=== PATIENT | female | born 1965 | race Caucasian/White ===

== ENCOUNTER 2017-09-03 13:27 | Emergency (ER) | payer BC, OTHER ==
[2017-09-03 13:37] VITALS: BP 146/75; PULSE 83; TEMP 97.6; BMI 28.3
[2017-09-03] MEDS ORDERED: DIPHTH,PERTUSS(ACELL),TET 0.5 ML DISP.SYRIN IM ONE (14:32)
[2017-09-03] MEDS ORDERED: ACETAMINOPHEN 500 MG TABLET (FP) PO ONE (14:39)
[2017-09-03] MEDS ORDERED: ACETAMINOPHEN 325 MG TABLET (FP) ONE (14:41)
--- NOTE | 2017-09-03 14:45 | PDOC ---
History of Present Illness - General Chief Complaint: Injury Stated Complaint: HEAD INJURY Time Seen by Provider: 09/03/17 14:01 History Source: Patient Exam Limitations: No Limitations - History of Present Illness Initial Comments: 09/03/17 14:40 51-year-old female present ED with complaints of left forehead injury. Patient was standing up on a windowsill with socks when she had slipped causing her to fall sideways. Patient sustained a laceration to her left forearm and now complaining of left breast and right knee pain. Patient states unsure of her last tetanus and denies LOC. Patient states is not any anticoagulation therapy including aspirin. Patient currently denies headache, dizziness, visual changes , neck pain or nausea. Occurred: reports: just prior to arrival Severity: reports: mild Pain Location: reports: face Method of Injury: Yes: fall Modifying Factors: improves with: None Loss of Consciousness: no loss of consciousness Associated Symptoms (Fall): other Past History - Past Medical History Allergies/Adverse Reactions: Allergies Allergy/AdvReac Type Severity Reaction Status Date / Time No Known Allergies Allergy Verified 09/03/17 13:37 Home Medications: Ambulatory Orders NK [No Known Home Medication] 09/03/17 Asthma: Yes Cancer: Yes (LYMPHOMA) COPD: No - Suicide/Smoking/Psychosocial Hx Smoking Status: No Smoking History: Never smoked Have you smoked in the past 12 months: No Number of Cigarettes Smoked Daily: 0 Hx Alcohol Use: No Drug/Substance Use Hx: No Patient Lives Alone: No Lives with/in: family Review of Systems - Review of Systems Able to Perform ROS?: Yes Constitutional: No: Symptoms Reported HEENTM: No: Symptoms Reported Respiratory: No: Symptoms reported Cardiac (ROS): Yes: Chest Pain (left breast) Integumentary: Yes: Other (laceration to left scalp) Neurological: No: Headache, Dizziness *Physical Exam - Vital Signs Last Vital Signs Temp Pulse Resp BP Pulse Ox 97.6 F 83 18 146/75 100 09/03/17 13:34 09/03/17 13:34 09/03/17 13:34 09/03/17 13:34 09/03/17 13:34 - Physical Exam General Appearance: Yes: Nourished, Appropriately Dressed. No: Apparent Distress HEENT: positive: EOMI, DAVID, TMs Normal, Pharynx Normal. negative: Pale Conjunctivae Neck: positive: Supple Respiratory/Chest: positive: Chest Tender (left breast with ecchymosis to 10:00 to 12:00. Nipple intact. No palpable hematoma), Lungs Clear, Normal Breath Sounds. negative: Respiratory Distress, Accessory Muscle Use Cardiovascular: positive: Regular Rhythm, Regular Rate. negative: Murmur Gastrointestinal/Abdominal: positive: Soft. negative: Tenderness Musculoskeletal: negative: CVA Tenderness, Vertebral Tenderness Integumentary: positive: Other (macerated linear laceration to left temporal scalp region measuring approx 2 cm) Neurologic: positive: Motor Strength 5/5 (ambulatory) Procedures - Laceration/Wound Repair Left Head Wound Explored: clean Wound's Depth, Shape: linear Wound Repaired With: [place] (4) Sterile Dressing Applied: Yes Medical Decision Making - Medical Decision Making 09/03/17 14:51 Patient injury to left temporal region. Patient on exam with laceration to left temporal region. Patient had 4 nela placed without difficulty. Will discharge patient home after receiving T dap and Tylenol. Patient to return in 10 days. *DC/Admit/Observation/Transfer Diagnosis at time of Disposition: Laceration of scalp without foreign body Qualifiers: Encounter type: initial encounter Qualified Code(s): S01.01XA - Laceration without foreign body of scalp, initial encounter - Discharge Dispostion Disposition: HOME Condition at time of disposition: Improved - Referrals Referrals: Marisabel Stovall MD [Primary Care Provider] - - Patient Instructions Printed Discharge Instructions: DI for Closed Head Injury Additional Instructions: Take Tylenol Motrin for discomfort and please return here in 10 days for staple removal. If you develop any severe headache, nausea, dizziness, or weakness. Return to the ED sooner - Post Discharge Activity Forms/Work/School Notes: Back to Work
== END 2017-09-03 14:58 | disposition home or self-care (01) ==
LOC: JERFT 13:27
PROC: 0HQ0XZZ Repair Scalp Skin, External Approach (ICD-10-PCS; principal; 2017-09-03)
PROC: 3E0234Z Introduction of Serum, Toxoid and Vaccine into Muscle, Percutaneous Approach (ICD-10-PCS; 2017-09-03)
DX: S01.01XA Laceration without foreign body of scalp, initial encounter (principal); W18.39XA Other fall on same level, initial encounter; Y93.89 Activity, other specified; Y92.9 Unspecified place or not applicable
CPT/HCPCS: 90715; 99281-25

== ENCOUNTER 2018-03-31 21:39 | Emergency (ER) | payer BC ==
--- NOTE | 2018-03-31 21:40 | PDOC ---
History of Present Illness - General History Source: Patient Exam Limitations: No Limitations - History of Present Illness Initial Comments: 03/31/18 22:06 A portion of this note was documented by scribe services under my direction. I have reviewed the details of the note, within reason, and agree with the documentation. The case summary and management plan written by me. Assessment and plan: This is a 52-year-old female who comes in complaining of photophobia, tearing and pain bilateral times this evening. Patient is having difficulty opening her eyes secondary to the discomfort. On florescene exam there is diffuse punctate uptake of the florescene of the cornea. Patient started on Tobrex ophthalmic solution and told to follow-up with her candy puller as soon as possible Monday morning. <Nat Lou I - Last Filed: 03/31/18 22:06> - General History Source: Patient Exam Limitations: No Limitations - History of Present Illness Initial Comments: 03/31/18 22:08 The patient is a 52 year old female with a significant PMH of asthma and lymphoma who presents to the emergency department with bilateral eye pain and redness since earlier today. The patient reports that she was outside earlier today having a garage sale in her yard. She states that she took toprol at 12pm today and mistook it for another medication and soon after she began to feel discomfort and redness in both of her eyes. The patient states that it is hard for her to keep her eyes open secondary to pain. She reports some light sensitivity as well. The patient reports that she has experienced an episode similar to this about 3 years ago but it was not as intense. The patient reports that she does had seasonal allergies. She denies any instances of anything getting into her eye. The patient reports a slight headache at time of exam. She denies any other symptoms. She denies fever, chills, nausea, vomit, diarrhea, constipation, or urinary symptoms. She denies chest pain, shortness of breath, and dizziness. The patient denies any other complaints. PAST MEDICAL HISTORY: asthma, Lymphoma PAST SURGICAL HISTORY: no significant history FAMILY HISTORY: no pertinent history SOCIAL HISTORY: Pt lives with family and is employed. MEDICATIONS: reviewed ALLERGIES: As per nursing notes General: No fevers or chills, no weakness, no weight loss HEENT: (+)left are right eye pain and redness. No sore throat,. No ear pain CardioVascular: No chest pain or shortness of breath Respiratory:No cough, or wheezing. Gastrointestinal: no nausea, vomiting, diarrhea or constipation, No rectal bleeding Genitourinary: No dysuria, hematuria, or frequency Musculoskeletal: No joint or muscle pain or swelling Neurologic: No headache, vertigo, dizziness or loss of consciousness Psychiatric: nor depression Skin: No rashes or easy bruising Endocrine: no increased thirst or abnormal weight change Allergic: no skin or latex allergy All other systems reviewed and normal GENERAL: The patient is awake, alert, and fully oriented, in no acute distress. HEAD: Normal with no signs of trauma. EYES:(+)bilateral injection of conjunctiva with profuse tearing of eyes bilaterally. No purulant discharge. Fluorescence staining diffuse punctate of fluorescence of eyes bilaterally. Pupils equal, round and reactive to light, extraocular movements intact. EXTREMITIES: Normal range of motion, no edema. NEUROLOGICAL: Normal speech, normal gait. PSYCH: Normal mood, normal affect. SKIN: Warm, Dry, normal turgor, no rashes or lesions noted. <Patricia Flowers - Last Filed: 03/31/18 22:12> - General Chief Complaint: Eye Problem Stated Complaint: BILATERAL EYE PAIN, REDNESS, TEARING Time Seen by Provider: 03/31/18 21:40 Past History - Past Medical History Asthma: Yes Cancer: Yes (LYMPHOMA) COPD: No - Suicide/Smoking/Psychosocial Hx Smoking Status: No Smoking History: Never smoked Have you smoked in the past 12 months: No Number of Cigarettes Smoked Daily: 0 Hx Alcohol Use: No Drug/Substance Use Hx: No <Nat Lou I - Last Filed: 03/31/18 22:06> <Patricia Flowers - Last Filed: 03/31/18 22:12> - Past Medical History Allergies/Adverse Reactions: Allergies Allergy/AdvReac Type Severity Reaction Status Date / Time No Known Allergies Allergy Verified 03/31/18 21:41 Home Medications: Ambulatory Orders NK [No Known Home Medication] 09/03/17 *Physical Exam - Vital Signs Last Vital Signs Temp Pulse Resp BP Pulse Ox 99.6 F 85 18 127/69 100 03/31/18 21:40 03/31/18 21:40 03/31/18 21:40 03/31/18 21:40 03/31/18 21:40 <Patricia Flowers - Last Filed: 03/31/18 22:12> ED Treatment Course - Medications Given in the ED: ED Medications Discontinued Medications Generic Name Dose Route Start Last Admin Trade Name Yaneth PRN Reason Stop Dose Admin Tobramycin Sulfate 1 drop 03/31/18 22:03 03/31/18 22:04 Tobrex Ophthalmic Solution - OU 03/31/18 22:04 1 drop ONCE ONE Administration <Patricia Flowers - Last Filed: 03/31/18 22:12> *DC/Admit/Observation/Transfer <Nat Lou I - Last Filed: 03/31/18 22:06> - Attestations Scribe Attestion: 03/31/18 22:09 Documentation prepared by Patricia Flowers, acting as medical underwriter for Nat Lou MD. <Patricia Flowers - Last Filed: 03/31/18 22:12> Diagnosis at time of Disposition: Keratitis - Discharge Dispostion Disposition: HOME Condition at time of disposition: Stable - Patient Instructions Additional Instructions: Put 1 drop of the eye solution in each eye every 4 hours while awake. Call your candy puller Monday morning first thing and get an appointment to follow-up as soon as possible. Return to the emergency department immediately with ANY new, persistent or worsening symptoms. Continue any medications as previously prescribed by your physician. You should follow up with your primary doctor as soon as possible regarding today's emergency department visit. . Please make sure your doctor reviews the results of your emergency evaluation. Thank you for coming to the Emergency Department today for your care. It was a pleasure to see you today. Please note that your evaluation is INCOMPLETE until you follow-up with your doctor.
[2018-03-31] MEDS ORDERED: TETRACAINE 0.5% OPHTH SOLN 2 ML BOTTLE ONE (21:44)
[2018-03-31] MEDS ORDERED: FLUORESCEIN NA 1 EA STRIP ONE (21:45)
[2018-03-31 21:53] VITALS: BP 127/69; PULSE 85; TEMP 99.6; BMI 28.3
[2018-03-31] MEDS ORDERED: TOBRA 0.3%/DEXAMETH 0.1% OPHTHALMIC SUSP 2.5 ML BTL ONE (21:57)
[2018-03-31] MEDS ORDERED: TOBRAMYCIN 0.3% OPHTH SOLN 5 ML BOTTLE OU ONE (22:03)
== END 2018-03-31 22:06 | disposition home or self-care (01) ==
LOC: FER 21:39
DX: H16.9 Unspecified keratitis (principal)
CPT/HCPCS: 99282-25

== ENCOUNTER 2023-01-21 21:11 | Emergency (ER) | payer BC ==
[2023-01-21 21:26] VITALS: BP 159/75; PULSE 84; RESP 16; TEMP 98.3; BMI 29.6
[2023-01-21] MEDS ORDERED: CEPHALEXIN MONOHYDRATE 500 MG CAPSULE (UD) ONE (21:34)
[2023-01-21] MEDS ORDERED: CEPHALEXIN MONOHYDRATE 500 MG CAPSULE (UD) PO ONE (21:39)
== END 2023-01-21 21:43 | disposition home or self-care (01) ==
LOC: FER 21:11
DX: S61.411A Laceration without foreign body of right hand, initial encounter (principal); Y28.9XXA Contact with unspecified sharp object, undetermined intent, initial encounter
CPT/HCPCS: 99283-25

== ENCOUNTER 2023-08-31 19:00 | Emergency (ER) | payer BC ==
[2023-08-31 19:24] VITALS: BP 154/85; PULSE 98; RESP 18; TEMP 98; BMI 31.1
[2023-08-31 19:49] LABS: HEMATOCRIT 38.5 % (32.4-45.2); HEMOGLOBIN 12.4 G/dL (10.7-15.3); MCH 28.9 pg (25.7-33.7); MCHC 32.1 g/dl (32.0-36.0); MEAN CELL VOLUME 90.1 fl (80-96); MEAN PLT VOLUME 7.7 fl (7.5-11.1); PLATELET COUNT 396.1 10^3/uL (134-434); RBC 4.27 10^6/uL (3.60-5.2); RDW 14.3 % (11.6-15.6); WHITE BLOOD COUNT 8.1 10^3/uL (4.0-10.8)
[2023-08-31 19:54] LABS: PLATELET ESTIMATE ADEQUATE
[2023-08-31 20:05] LABS: ALBUMIN 4.1 g/dl (3.4-5.0); BILIRUBIN,TOTAL 0.3 mg/dl (0.2-1); CALCIUM 9.8 mg/dl (8.5-10.1); CREATININE 0.6 mg/dl (0.6-1.3); POTASSIUM 3.5 mmol/L (3.5-5.1); TOT PROT 6.7 g/dl (6.4-8.2)
[2023-08-31] MEDS ORDERED: KETOROLAC TROMETHAMINE 30 MG/1 ML VIAL IVPUSH ONE (21:56)
[2023-08-31] MEDS ORDERED: KETOROLAC TROMETHAMINE 30 MG/1 ML VIAL ONE (21:58)
== END 2023-08-31 22:11 | disposition home or self-care (01) ==
LOC: FER 19:00
PROC: 3E0333Z Introduction of Anti-inflammatory into Peripheral Vein, Percutaneous Approach (ICD-10-PCS; principal; 2023-08-31)
DX: R10.30 Lower abdominal pain, unspecified (principal); M54.9 Dorsalgia, unspecified; K59.00 Constipation, unspecified; R19.7 Diarrhea, unspecified; S39.012A Strain of muscle, fascia and tendon of lower back, initial encounter; X58.XXXA Exposure to other specified factors, initial encounter
CPT/HCPCS: 36415; 74176-TC; 80053; 81003; 85027; 87086; 99284-25